=== PATIENT | female | born 1985 | race African-American/Black ===

== ENCOUNTER 2017-04-16 16:23 | Emergency (ER) | payer OTHER ==
[~2017-04-16] VITALS: Ht 167.6 cm; Wt 129.6 kg
[2017-04-16] MEDS: IBUPROFEN 800 MG TABLET PO ONE (17:31)
[2017-04-16 18:19] VITALS: BP 148/95
== END 2017-04-16 18:26 | disposition home or self-care (01) ==
LOC: EMS 16:25
DX: S16.1XXA Strain of muscle, fascia and tendon at neck level, initial encounter (principal); S29.012A Strain of muscle and tendon of back wall of thorax, initial encounter; R03.0 Elevated blood-pressure reading, without diagnosis of hypertension; V49.9XXA Car occupant (driver) (passenger) injured in unspecified traffic accident, initial encounter; Y93.89 Activity, other specified; Y92.481 Parking lot as the place of occurrence of the external cause; Y99.8 Other external cause status
CPT/HCPCS: 99283

== ENCOUNTER 2017-04-22 15:20 | Emergency (ER) | payer OTHER ==
[~2017-04-22] VITALS: Ht 165.1 cm; Wt 129.0 kg
[2017-04-22] MEDS ORDERED: LIDOCAINE HCL BUFFERED 1% W/EPI 1:100,000 20 ML VIAL INJ ONE (19:15)
[2017-04-22] MEDS ORDERED: HYDROCODONE/ACETAMINOPHEN 5-325 MG TABLET PO ONE (19:15)
[2017-04-22] MEDS ORDERED: ONDANSETRON HCL 4 MG TABLET PO ONE (19:15)
[2017-04-22] MEDS ORDERED: LIDOCAINE HCL 1%/EPI 1:200,000/PF 30 ML VIAL INJ ONE (19:45)
[2017-04-22 20:54] VITALS: BP 122/91
== END 2017-04-22 21:36 | disposition home or self-care (01) ==
LOC: EMS 15:23
DX: L02.212 Cutaneous abscess of back [any part, except buttock and flank] (principal); G89.29 Other chronic pain; M54.9 Dorsalgia, unspecified
CPT/HCPCS: 10060; 99283; J3490; Q0162

== ENCOUNTER 2017-04-24 09:24 | Emergency (ER) | payer OTHER ==
[~2017-04-24] VITALS: Ht 165.1 cm; Wt 129.0 kg
[2017-04-24] MEDS ORDERED: HYDR-309 PO (09:33)
[2017-04-24] MEDS ORDERED: MET500 PO (09:33)
[2017-04-24] MEDS ORDERED: CEPH500 PO (09:33)
[2017-04-24] MEDS ORDERED: SULF1TAB42 PO (09:39)
[2017-04-24 10:41] VITALS: BP 127/77
[2017-04-24] MEDS ORDERED: BACITRACIN 0.9 GM PACKET OINTMENT TP ONE (11:00)
== END 2017-04-24 11:26 | disposition home or self-care (01) ==
LOC: EMS 09:25
DX: Z48.00 Encounter for change or removal of nonsurgical wound dressing (principal); L02.212 Cutaneous abscess of back [any part, except buttock and flank]
CPT/HCPCS: 99282

== ENCOUNTER 2020-04-10 00:15 | Emergency (ER) | payer OTHER ==
[~2020-04-10] VITALS: Ht 165.1 cm; Wt 127.3 kg
[~2020-04-10 00:15] MED LIST: CEPH500 PO; HYDR-309 PO; METH500T7 PO; SULF1TAB42 PO
[2020-04-10 00:45] VITALS: BP 136/69
[2020-04-10] MEDS ORDERED: PERTUSS(ACELL),DIPH,TET VAC/PF 0.5 ML VIAL IM ONE (01:00)
[2020-04-10] MEDS ORDERED: IBUPROFEN 800 MG TABLET PO ONE (01:00)
== END 2020-04-10 02:05 | disposition home or self-care (01) ==
LOC: EMS 00:17
DX: S91.331A Puncture wound without foreign body, right foot, initial encounter (principal); W45.0XXA Nail entering through skin, initial encounter; Y93.89 Activity, other specified; Y92.89 Other specified places as the place of occurrence of the external cause; Y99.8 Other external cause status
CPT/HCPCS: 90471; 90715

== ENCOUNTER 2020-09-14 18:02 | Emergency (ER) | payer OTHER ==
[~2020-09-14] VITALS: Ht 166.4 cm; Wt 129.4 kg
[~2020-09-14 18:02] MED LIST changes: -CEPH500 PO; -SULF1TAB42 PO
[2020-09-14] MEDS ORDERED: ACETAMINOPHEN/CODEINE 300-30 MG TABLET PO ONE (19:00)
[2020-09-14] MEDS ORDERED: IBUPROFEN 600 MG TABLET PO ONE (19:00)
[2020-09-14 20:03] VITALS: BP 142/91
== END 2020-09-14 20:41 | disposition home or self-care (01) ==
LOC: EMS 18:02
DX: S63.613A Unspecified sprain of left middle finger, initial encounter (principal); G89.29 Other chronic pain; W22.8XXA Striking against or struck by other objects, initial encounter; Y93.89 Activity, other specified; Y92.098 Other place in other non-institutional residence as the place of occurrence of the external cause; Y99.8 Other external cause status

== ENCOUNTER 2023-03-26 21:24 | Emergency (ER) | payer OTHER ==
[~2023-03-26] VITALS: Ht 167.6 cm; Wt 131.8 kg
[2023-03-26] MEDS ORDERED: KETOROLAC TROMETHAMINE 30 MG/ML VIAL IVP ONE (22:30)
[2023-03-26] MEDS ORDERED: KETOROLAC TROMETHAMINE 60 MG/2 ML VIAL IM ONE (23:15)
[2023-03-27] MEDS ORDERED: MedroxyPROGESTERone ACET 5 MG TABLET PO ONE
[2023-03-27 00:17] LABS: BASOPHILS % (AUTO) 1.2 % (0.0-2.0); EOSINOPHILS % (AUTO) 2.2 % (1.0-6.0); HEMATOCRIT 36.5 % (36-46); HEMOGLOBIN 12.2 g/dL (12.0-16.0); LYMPHOCYTES # (AUTO) 3.3 K/uL (1.0-4.8); LYMPHOCYTES % (AUTO) 34.1 % (22.0-44.0); MEAN CORPUSCULAR HEMOGLOBIN 32.4 pg (26.0-34.0); MEAN CORPUSCULAR HGB CONC 33.3 G/dL (31.0-37.0); MEAN CORPUSCULAR VOLUME 97 fL (80-100); MONOCYTES # (AUTO) 0.6 K/uL (0.1-1.0); MONOCYTES % (AUTO) 6.2 % (2.0-9.0); NEUTROPHILS # (AUTO) 5.4 K/uL (1.8-7.7); NEUTROPHILS % (AUTO) 56.3 % (40.0-70.0); PLATELET COUNT (AUTO) 255 K/uL (150-450); RED BLOOD CELL COUNT(AUTO) 3.75 MIL/uL (4.00-5.20); RED CELL DISTRIBUTION WIDTH 13.5 % (11.5-14.5)
[2023-03-27 00:26] LABS: ANION GAP 9 mmol/L (8-16); CALCIUM, TOTAL 8.7 mg/dL (8.8-10.5); CARBON DIOXIDE 29 mmol/L (22-29); CHLORIDE 106 mmol/L (98-107); CREATININE 0.83 mg/dL (0.60-1.30); GLOMERULAR FILTR. RATE CALC > 60 mL/min (>60); GLUCOSE,RANDOM 112 mg/dL (70-110); POTASSIUM 4.1 mmol/L (3.5-5.1); SODIUM SERUM 144 mmol/L (136-145)
[2023-03-27 00:37] LABS: ALANINE AMINOTRANSFERASE 14 U/L (12-78); ALBUMIN 3.1 g/dL (3.4-5.0); ALKALINE PHOSPHATASE 72 U/L (46-116); ASPARTATE AMINOTRANSFERASE 11 U/L (15-37); BILIRUBIN,TOTAL 0.4 mg/dL (0.1-1.0); HCG,QUANTITATIVE < 1 mIU/mL (0-6); TOTAL PROTEIN, SERUM 7.1 g/dL (6.4-8.2)
[2023-03-27] MEDS ORDERED: MEDR5TAB5 PO (00:57)
[2023-03-27 01:00] VITALS: BP 129/67
== END 2023-03-27 01:00 | disposition home or self-care (01) ==
LOC: EMS 21:29
DX: N93.9 Abnormal uterine and vaginal bleeding, unspecified (principal); G89.29 Other chronic pain; M54.9 Dorsalgia, unspecified; Z90.49 Acquired absence of other specified parts of digestive tract; Z98.51 Tubal ligation status; Z98.890 Other specified postprocedural states; Z91.040 Latex allergy status; Z88.5 Allergy status to narcotic agent
CPT/HCPCS: 99285; 76856; 80053; 84702; 85025; 36415; 96372; J1885